=== PATIENT | female | born 1940 | race Caucasian/White ===

== ENCOUNTER 2024-01-22 07:47 | Day surgery (SDC) | payer MEDICARE ==
[~2024-01-22] VITALS: Ht 157.5 cm; Wt 68.2 kg
[~2024-01-22 07:47] MED LIST: GABA-1405 PO; OMEP20CA16 PO
[2024-01-22 08:07] VITALS: BP 158/86; PULSE 85; RESP 12
[2024-01-22] MEDS ORDERED: LIDOcaine 2% Viscous 15ml cup ONE (09:44)
[2024-01-22] MEDS ORDERED: diphenhydrAMINE 50 mg/ml inj ONE (09:44)
[2024-01-22] MEDS ORDERED: MIDAZolam 1 MG/ML 5ML VIAL ONE (09:44)
[2024-01-22] MEDS ORDERED: fentaNYL/PF 50MCG/1 ML 2ML syringe ONE (09:44)
[2024-01-22] MEDS ORDERED: simethicone 40mg/0.6ml oral drops 30ml ONE (10:20)
[2024-01-22 10:21] VITALS: BP 184/87; PULSE 76; RESP 12; O2SAT 96
[2024-01-22 10:30] VITALS: BP 170/90; PULSE 75; RESP 14; O2SAT 96
[2024-01-22 10:40] VITALS: BP 174/80; PULSE 74; RESP 15; O2SAT 96
[2024-01-22 10:50] VITALS: BP 164/75; PULSE 72; RESP 13; O2SAT 97
[2024-01-28] MEDS ORDERED: ALBU8HFA INH (13:12)
== END 2024-01-22 10:55 | disposition home or self-care (01) ==
LOC: GI LAB 07:47
PROVIDERS: ATTEND Internal Medicine Gastroenterology
DX: R13.10 Dysphagia, unspecified (principal); K22.2 Esophageal obstruction; K29.50 Unspecified chronic gastritis without bleeding; K31.89 Other diseases of stomach and duodenum; L83 Acanthosis nigricans; R12 Heartburn; K21.9 Gastro-esophageal reflux disease without esophagitis; J44.9 Chronic obstructive pulmonary disease, unspecified; Z98.890 Other specified postprocedural states; Z79.899 Other long term (current) drug therapy
CPT/HCPCS: 43239; 43450; A4620; J1200; J2250; J3010; J7030; Z7512; 88305; 99152; 99153

== ENCOUNTER 2024-02-02 07:51 | Day surgery (SDC) | payer MEDICARE ==
[~2024-02-02] VITALS: Ht 162.6 cm; Wt 68.0 kg
[2024-02-02] VITALS (7 sets, daily range): BP systolic 154–189; BP diastolic 79–94; PULSE 70–88; RESP 12–21; TEMP 98.3; O2SAT 93–96
[~2024-02-02 07:51] MED LIST changes: +ALBU8HFA INH
[2024-02-02] MEDS ORDERED: propofol inj 20 ML IV ONE (09:42)
== END 2024-02-02 10:42 | disposition home or self-care (01) ==
LOC: GI LAB 07:51
PROVIDERS: ATTEND Internal Medicine Gastroenterology
DX: R13.10 Dysphagia, unspecified (principal); K22.2 Esophageal obstruction; K21.9 Gastro-esophageal reflux disease without esophagitis; J44.9 Chronic obstructive pulmonary disease, unspecified; M19.90 Unspecified osteoarthritis, unspecified site; I12.9 Hypertensive chronic kidney disease with stage 1 through stage 4 chronic kidney disease, or unspecified chronic kidney disease; N18.9 Chronic kidney disease, unspecified; Z98.890 Other specified postprocedural states; Z90.710 Acquired absence of both cervix and uterus
CPT/HCPCS: 43450; J2704

== ENCOUNTER 2024-02-26 06:30 | Day surgery (SDC) | payer MEDICARE ==
[~2024-02-26] VITALS: Ht 157.5 cm; Wt 65.9 kg
[2024-02-26 07:23] VITALS: BP 119/94; PULSE 72; RESP 16
[2024-02-26] MEDS ORDERED: LIDOcaine 2% Viscous 15ml cup ONE (07:42)
[2024-02-26] MEDS ORDERED: MIDAZolam 1 MG/ML 5ML VIAL ONE (08:11)
[2024-02-26] MEDS ORDERED: diphenhydrAMINE 50 mg/ml inj ONE (08:11)
[2024-02-26] MEDS ORDERED: fentaNYL/PF 50MCG/1 ML 2ML syringe ONE (08:11)
[2024-02-26 08:35] VITALS: BP 181/99; PULSE 80; RESP 9; O2SAT 98
[2024-02-26 08:45] VITALS: BP 185/92; PULSE 77; RESP 10; O2SAT 95
[2024-02-26 08:55] VITALS: BP 184/95; PULSE 77; RESP 11; O2SAT 96
[2024-02-26 09:05] VITALS: BP 181/85; PULSE 69; RESP 11; O2SAT 95
== END 2024-02-26 09:08 | disposition home or self-care (01) ==
LOC: PRE-OP 06:30
PROVIDERS: ATTEND Internal Medicine Gastroenterology
DX: R13.10 Dysphagia, unspecified (principal); K22.2 Esophageal obstruction
CPT/HCPCS: 43235; A4620; G0500; J1200; J2250; J3010; J7030; Z7512; 43450; 99152